=== PATIENT | female | born 1935 | race Caucasian/White ===

== ENCOUNTER 2017-12-21 06:31 | Day surgery (SDC) | payer MEDICARE, SELFPAY ==
[2016-09-25 14:43] VITALS: BP 128/70
[2017-12-03 16:26] VITALS: BP 102/62; BMI 16.4
[2017-12-21 07:42] VITALS: BP 130/88; PULSE 75; RESP 16; TEMP 36.9; O2SAT 96; BMI 14.3
[2017-12-21] MEDS: Tetracaine 0.5% Ophthalmic Bottle 1 DRP (08:18)
--- NOTE | 2017-12-21 08:47 | PCM.DCCATA ---
Discharge Diet: No Restrictions Discharge Activity: - - Take it easy the rest of the day of surgery. Be careful not to trip or fall. Avoid bumping the operated eye and do not rub the eye. You may stay alone, but need to be able to call and/or come in if necessary. Try to sleep on the unoperated side or on your back tonight. Call your doctor if you observe: - - new or increased pain, a worsening of vision, or if you have any questions. Also call the office if you are experiencing a severe headache on the operative side, nausea or vomiting. Allergies/Adverse Reactions: Allergies erythromycin base Allergy (Verified 12/17/17 10:06) Hives Latex, Natural Rubber Allergy (Verified 12/17/17 10:06) Other Penicillins Allergy (Verified 12/17/17 10:06) Shortness of breath clarithromycin Adverse Reaction (Verified 12/17/17 10:06) Other severe confusion Medications to take at Discharge tiotropium bromide 18 mcg capsule with inhalation device 1 cap INHALATION QDAY 12/03/17 Aspirin [Adult Low Dose Aspirin EC] 81 mg PO DAILY 12/14/17 Levothyroxine [Synthroid] 75 mcg PO DAILY 12/14/17 Mirtazapine [Remeron] 15 mg PO QHS 12/14/17 Acetaminophen [Tylenol Extra Strength] 250 mg PO Q6H PRN PRN 12/17/17 Benzonatate [Tessalon Perle] 100 mg PO Q4H PRN PRN 12/17/17 Primary Care Physician: Cory Mseser MD [Primary Care Provider] - -Take a pain reliever such as Tylenol, Aspirin or Ibuprofen if needed for eye aching or pain. If this is not enough relief for you pain, call your doctor (or the doctor architectural sales consultant), even at night. -You are scheduled for a follow-up appointment at [facility] the day after surgery. You should have someone drive you. -Transient pain and irritation are due to the incision that was made at the time of surgery and do not indicate any trouble. Our office numbers are or toll-free . If there is no answer, or if it is after our normal business hours, call your surgeon. Our home phone numbers are: Dr. Malagon Dr. Fernández Dr. Farmer Dr. Abbasi If you are still unable to reach your doctor, call the answering service and [facility] , and the addressing machine operator can contact the on-call doctor through a long-range beeper system. INSTRUCTIONS FOLLOWING TOPICAL ANESTHETIC CATARACT SURGERY Protect operated eye with glasses or metal shield at all times. Instill one drop of Cipro (or other antibiotic drop), one drop of Prednisolone and one drop of Flurbiprofen in the operated eye four times a day (breakfast, lunch, dinner and bedtime) until the doctor tells you to quit or decrease them. Wait 3-5 minutes between each drop. Your first drop for today was given after surgery. INSTRUCTIONS FOLLOWING RETROBULBAR CATARACT SURGERY Keep the eye patch and metal shield on until you see your surgeon the day after surgery - these will be removed in the office that day. Do not drive while the patch is on your eye. You will be instructed about the use of drops for the operated eye at that visit.
[2017-12-21 08:51] VITALS: BP 130/88; BP 147/97; PULSE 73; RESP 18; TEMP 36; O2SAT 98
[2017-12-21 08:55] VITALS: BP 130/88; BP 140/83; PULSE 71; RESP 18; O2SAT 98
[2017-12-21 09:00] VITALS: BP 130/88; BP 146/96; PULSE 68; RESP 18; O2SAT 98
[2017-12-21 09:06] VITALS: BP 130/88; BP 144/84; PULSE 68; RESP 18; TEMP 36.8; O2SAT 98
[2017-12-21 09:44] VITALS: BP 130/88
== END 2017-12-21 10:02 | disposition home or self-care (01) ==
LOC: SDC 06:34 → AC 06:34
PROVIDERS: Family Provider Family Medicine; PCP Family Medicine; Visit Provider Ophthalmology
PROC: (CPT 66984; principal; 2017-12-21 08:10)
DX: H25.13 Age-related nuclear cataract, bilateral (principal); H35.363 Drusen (degenerative) of macula, bilateral; H43.813 Vitreous degeneration, bilateral; D31.31 Benign neoplasm of right choroid; J44.9 Chronic obstructive pulmonary disease, unspecified; E07.9 Disorder of thyroid, unspecified; G25.81 Restless legs syndrome; Z79.82 Long term (current) use of aspirin; Z79.899 Other long term (current) drug therapy; F17.200 Nicotine dependence, unspecified, uncomplicated; Z78.0 Asymptomatic menopausal state; Z86.718 Personal history of other venous thrombosis and embolism; Z86.73 Personal history of transient ischemic attack (TIA), and cerebral infarction without residual deficits; Z90.710 Acquired absence of both cervix and uterus
CPT/HCPCS: 66984; J7120

== ENCOUNTER 2019-09-01 13:28 | Emergency (ER) | payer MEDICARE, SELFPAY ==
[2019-09-01 13:05] VITALS: BMI 14.3
[2019-09-01 13:30] VITALS: BP 116/77; PULSE 87; RESP 16; TEMP 37; O2SAT 97; BMI 13.6
[2019-09-01] MEDS: 0.9% Normal Saline 1,000 ML 1000 ML IV (14:55)
[2019-09-01 14:59] LABS: Mucous, Urine 0 SEEN /hpf (<or=2+)
[2019-09-01 15:04] LABS: Absolute Lymphocyte Count 1.66 X10^3/uL (0.83-4.51); Absolute Neutrophil Count 7.2 X10^3/uL (2.0-7.7); Basophil# 0.04 X10^3/uL; Basophil% 0.4 % (0-1); Hematocrit 45.2 % (37-47); Hemoglobin 14.7 g/dL (12.0-15.0); Lymphocyte # 1.66 X10^3/ul (4.0); Lymphocyte % 16.8 % (19-41); Mean Corp Hgb Conc 32.5 g/dL (32-36); Mean Corpuscular Hgb 31.2 pg (27.0-32.0); Mean Platelet Vol. 9.6 fl (6.2-12.0); Monocyte# 0.83 X10^3/uL; Monocyte% 8.4 % (0-10); NRBC Flagged by Analyzer 0 % (0-5); Neutrophil % 73.1 % (47-70); Platelet Count 247 K/mm3 (150-450); RBC Distribution Width CV 13.2 % (11.6-14.6); RBC Distribution Width SD 47.3 fl (35.1-43.9); Red Blood Count 4.71 M/mm3 (4.2-5.4); White Blood Count 9.9 K/mm3 (4.4-11.0)
[2019-09-01 15:06] LABS: Color, Urine Yellow (Yellow); Glucose, Dipstick Normal (Normal); Ketone-Dipstick Negative (Negative); Leukocyte Esterase-Dipstick 500 /ul (Negative); Nitrite-Dipstick Negative (Negative); Occult Blood-Urine 50 /ul (Negative); Protein-Dipstick 30 mg/dl (Negative); Specific Gravity, Urine 1.015 (1.002-1.030); Urine Bilirubin Dipstick Negative (Negative); Urine Clarity Sl. Cloudy (Clear); Urine Urobilinogen Normal (Normal); Urine pH 6.5 (5.0 - 8.0)
[2019-09-01 15:07] LABS: Red Blood Cells-Urine 0-5 SEEN /hpf (0-5)
[2019-09-01 15:08] LABS: Bacteria 2+ /hpf (None Seen); Squamous Epithelial Cells - UA 0-5 SEEN /hpf (5-10); White Blood Cells 50-100 SEEN /hpf (0-5)
[2019-09-01 15:36] LABS: Anion Gap 5 (5-15); BUN 14 mg/dL (7-18); BUN/Creat Ratio 20.7 RATIO (10-20); Calcium,Total 9.1 mg/dL (8.5-10.1); Chloride 97 mmol/L (98-107); Creatinine, Serum 0.68 mg/dL (0.55-1.02); EST Glomerular Filtration Rate 88 mL/min (>60); Est Glom Filt Rate - Afr Amer 106 mL/min (>60); Estimated Creatinine Clearance 20.62 ml/min; Glucose 83 mg/dL (74-106); Potassium 4.5 mmol/L (3.5-5.1); Sodium Level 132 mmol/L (136-145)
--- NOTE | 2019-09-01 15:39 | ED.DCSUM_ITS ---
- ER Visit Summary Date of Service: 09/01/19 Chief Complaint: Sent by the urgent care diagnosed with a urinary tract infection and felt to be dehydrated. History of Present Illness: The patient is a 84 F history of hypothyroidism and COPD. Patient states she has not felt well for 2 to 3 weeks. She is had urinary frequency. She denies fever nor vomiting or diarrhea. No vaginal bleeding. No back pain. She was seen in the urgent care today and sent to the emergency department. Physical Examination: Older female no acute distress. Vital signs are stable afebrile. HEENT exam unremarkable. Moist week's membranes. Neck nontender no lymphadenopathy. Lungs clear to auscultation bilaterally. Heart regular rhythm no murmur. Abdomen is soft and nontender. Normal bowel sounds no peritoneal signs. Patient moving all 4 extremities. Neurovascular intact. No edema. Neurologically she is awake and alert with no focal motor deficits. Test Results: CBC shows white count of 9. Hemoglobin 14. Electrolytes show sodium 132. Gap of 5 normal BUN of 14 creatinine 0.6 not consistent with dehydration. UA is consistent with urinary tract infection with 50-100 white cells 2+ bacteria and a culture was sent. Emergency Department Course and Treatment: The patient looks well. On repeat exam no change. She will be started on Keflex 500 4 times daily for 10 days and follow-up with her primary care physician. Return if feeling worse. Treatment Plan: Keflex 4 times daily for 10 days. Follow-up with primary care physician. Return if worse. Disposition: Discharge Impression: Acute UTI This note was generated with Surikate dictation software. It may contain incorrect words, spelling, and punctuation that were not noted in review of the chart prior to signing ED Disposition - Plan for ED Patient: Referrals: Cory Messer DO [Primary Care Provider] -
[2019-09-01] MEDS: Cephalexin 250 MG Capsule 500 MG PO (15:56)
[2019-09-01 16:05] VITALS: BP 164/90; PULSE 80; RESP 16; O2SAT 99
--- NOTE | 2019-09-01 16:34 | ED.DEP ---
ED Disposition - Plan for ED Patient: Disposition: Home or Assisted Living Instructions: Bladder Infection, Female (Adult) Prescriptions: Cephalexin [Keflex] 500 mg PO Q6 #40 cap Prescription Printed Referrals: Cory Messer DO [Primary Care Provider] - 3-5 Days if not improving Additional Instructions: Keflex 1 pill 4 times a day till gone. Plenty of fluids and rest. Follow-up with your doctor if not improving or return if worse.
== END 2019-09-01 16:40 | disposition home or self-care (01) ==
PROVIDERS: Emergency Provider Emergency Medicine; Family Provider Family Medicine; PCP Family Medicine
DX: N39.0 Urinary tract infection, site not specified (principal); R39.15 Urgency of urination; J44.9 Chronic obstructive pulmonary disease, unspecified; E03.9 Hypothyroidism, unspecified; Z72.0 Tobacco use; Z79.899 Other long term (current) drug therapy
CPT/HCPCS: 80048; 81001; 85025; 87077; 87086; 87088; 87186; 96360; 99284; J7030

== ENCOUNTER → 2019-09-01 14:50 | Outpatient (CLI) | payer MEDICARE, SELFPAY ==
[2019-09-01 13:30] VITALS: BMI 13.6
[2019-09-01 15:22] LABS: Bacteria 0 SEEN /hpf (None Seen); Mucous, Urine 0 SEEN /hpf (<or=2+); Red Blood Cells-Urine 0 SEEN /hpf (0-5); Squamous Epithelial Cells - UA 0 SEEN /hpf (5-10)
[2019-09-01 15:33] LABS: Color, Urine Yellow (Yellow); Glucose, Dipstick Normal (Normal); Ketone-Dipstick Negative (Negative); Leukocyte Esterase-Dipstick 500 /ul (Negative); Nitrite-Dipstick Negative (Negative); Occult Blood-Urine 150 /ul (Negative); Protein-Dipstick 30 mg/dl (Negative); Specific Gravity, Urine 1.025 (1.002-1.030); Urine Bilirubin Dipstick Negative (Negative); Urine Clarity Cloudy (Clear); Urine Urobilinogen Normal (Normal)
[2019-09-01 15:40] LABS: White Blood Cells >100 SEEN /hpf (0-5)
== END ==
PROVIDERS: Family Provider Family Medicine; PCP Family Medicine; Referring Provider Physician Assistant Surgical; Visit Provider Physician Assistant Surgical
DX: R39.15 Urgency of urination (principal)
CPT/HCPCS: 81001; 87077; 87086; 87088; 87186

== ENCOUNTER → 2019-10-06 13:52 | Outpatient (CLI) | payer MEDICARE, SELFPAY ==
[2019-10-06 13:18] VITALS: BMI 13.6
[2019-10-06 15:13] LABS: Thyroid Stim Hormone (TSH) 1.88 uIU/mL (0.358-3.74)
== END ==
PROVIDERS: Family Provider Family Medicine; PCP Family Medicine; Referring Provider Family Medicine; Visit Provider Family Medicine
DX: E03.9 Hypothyroidism, unspecified (principal)
CPT/HCPCS: 36415; 84443

== ENCOUNTER 2020-05-29 12:05 | Emergency (ER) | payer MEDICARE, SELFPAY ==
[2020-05-29 11:41] VITALS: BMI 13.6
[2020-05-29 12:06] VITALS: BP 126/69; PULSE 96; RESP 22; TEMP 36.6; O2SAT 94; BMI 15.0
--- NOTE | 2020-05-29 12:24 | EKG12_ITS ---
Test Reason : SOB Blood Pressure : / mmHG Vent. Rate : 087 BPM Atrial Rate : 087 BPM P-R Int : 124 ms QRS Dur : 070 ms QT Int : 368 ms P-R-T Axes : 074 045 070 degrees QTc Int : 442 ms Sinus rhythm with sinus arrhythmia with occasional Premature ventricular complexes Possible Left atrial enlargement Septal infarct , age undetermined Abnormal ECG Confirmed by SUSU HOWARD, SAMMY ([id number]), dictionary editor CHRISTIANO NOBLE ([id number]) on 06/01/2020 9:25:11 AM Referred By: ABAD Confirmed By:SAMMY CRISTOBAL MD
--- NOTE | 2020-05-29 12:24 | RAD_ITS ---
STUDY: X-RAY CHEST REASON FOR EXAM: Female, 84 years old. cough, SOB, BHAKTA -- x 3-4 days -- h/o COPD TECHNIQUE: Frontal view of the chest COMPARISON: September 23, 2016 FINDINGS: Lungs are severely hyperinflated. Is an elongated opacity arising from the right hilum, possibly in the fissure. There is no pneumothorax, pulmonary edema or pleural effusions. Cardiac size is enlarged. There is chronic scarring in the right apex. Skeletal structures are intact and osteoporotic. The patient is cachectic. RAD/Chest 1 View (Portable) IMPRESSION: 1. Right hilar opacity, unclear etiology. Differential possibilities are segmental collapse versus mass lesion. Refer to CT chest with contrast for definitive assessment. 2. Severe emphysema. 3. Moderate cardiomegaly. Electronically Signed: Rabia Fuller, at 14:10 EDT Tel , Service support ,
--- NOTE | 2020-05-29 12:27 | ED.VISSUMM ---
- ER Visit Summary Date of Service: 05/29/20 Chief Complaint: shortness of breath] History of Present Illness: The patient is a 84 F [presents to the emergency department with complaint of cough and shortness of breath. Patient's had symptoms for about a week. She denies fever. She complains of headache. She denies sore throat but it just is bothersome at times she states. She denies any ear pain. She denies body aches. Cough is sometimes productive of yellow sputum. She does have history of COPD and normally wears 3 L of home O2. She denies recent travel or surgery. She denies any exposures to any known cases of COVID-19. Patient was seen in urgent care and was referred to the emergency department today.] Physical Examination: [HEENT-PERRLA, EOMI. Cranial nerves II through XII grossly intact. TMs clear. Mucous membranes moist. No adenopathy. Patient is frail and cachectic. Cardiovascular-regular rate and rhythm without murmur or ectopy Lungs-diminished breath sounds bilaterally with some faint expiratory wheezes noted. Minimal tachypnea. No accessory muscle use or retractions. Abdomen-normoactive bowel sounds, soft, nontender, no rebound or rigidity, no peritoneal signs. Extremities-intact ?4, normal range of motion, normal pulses, atraumatic] Test Results: [EKG obtained arrival shows sinus rhythm with a ventricular rate of 87 bpm with some left atrial enlargement and old septal infarct noted. CBC with differential shows slight elevated white count 13.0, hemoglobin 13, hematocrit 39, placed 431. Chemistry showed a sodium of 127, potassium 4.8, chloride 93, CO2 30, BUN 11, creatinine 144, glucose was 108. Troponin was less than 0.15. COVID-19 test was negative. Chest x-ray showed COPD and a right hilar density which could be collapsed lung segment versus mass and recommended obtaining a CT scan to further evaluate.] Emergency Department Course and Treatment: [Patient had an IV line established on arrival. She was placed on a manager cardiac cath. Patient received albuterol inhaler. Patient was given Solu-Medrol 60 mg IV. Patient received doxycycline 100 mg p.o.] Treatment Plan: [Patient will be treated with doxycycline as well as prednisone. Patient did not want to be admitted. She feels well enough to go home and she felt improved after treatment. It was noted during her stay that she intermittently had tachycardia on monitor therefore a repeat EKG was obtained which was sinus with a ventricular rate of 86 bpm which is unchanged from prior] Disposition: [Discharged home in stable condition] Impression: [COPD exacerbation Dyspnea] This note was generated with Memoiration software. It may contain incorrect words, spelling, and punctuation that were not noted in review of the chart prior to signing ED Disposition - Plan for ED Patient: Instructions: ED COPD Flare Prescriptions: Doxycycline 100 mg PO BID #20 cap Transmission Status: Received by [id number] Prednisone 20 mg PO BID #14 tab Transmission Status: Received by [id number] Referrals: Cory Messer DO [Primary Care Provider] - 3-5 Days
[2020-05-29 12:32] VITALS: BP 157/94; PULSE 90; RESP 23; O2SAT 95; O2SAT 96
[2020-05-29] MEDS: MethylPREDNISolone 125 MG/2 ML Vial 60 MG IV (13:05)
[2020-05-29 13:30] LABS: Absolute Lymphocyte Count 0.92 X10^3/uL (0.83-4.51); Absolute Neutrophil Count 10.3 X10^3/uL (2.0-7.7); Basophil# 0.04 X10^3/uL; Basophil% 0.3 % (0-1); Eosinophil# 0.05 X10^3/uL; Eosinophils% 0.4 % (0-5); Hematocrit 39.2 % (37-47); Hemoglobin 13.2 g/dL (12.0-15.0); Lymphocyte # 0.92 X10^3/ul (4.0); Lymphocyte % 7.1 % (19-41); Mean Corp Hgb Conc 33.7 g/dL (32-36); Mean Corpuscular Hgb 32.3 pg (27.0-32.0); Mean Corpuscular Volume 95.8 fL (81-99); Monocyte# 1.58 X10^3/uL; Monocyte% 12.2 % (0-10); NRBC Flagged by Analyzer 0 % (0-5); Neutrophil # 10.33 X10^3/uL (2.7-7.7); Neutrophil % 79.7 % (47-70); POSITIVE DIFFERENTIAL YES; Platelet Count 431 K/mm3 (150-450); RBC Distribution Width CV 12.6 % (11.6-14.6); RBC Distribution Width SD 44.1 fl (35.1-43.9); Red Blood Count 4.09 M/mm3 (4.2-5.4)
[2020-05-29 13:32] LABS: Differential Indicated SCAN CRITERIA MET
[2020-05-29 13:43] LABS: Anion Gap 4 (5-15); BUN 11 mg/dL (7-18); Calcium,Total 8.8 mg/dL (8.5-10.1); Chloride 93 mmol/L (98-107); Creatinine, Serum 0.44 mg/dL (0.55-1.02); EST Glomerular Filtration Rate 144 mL/min (>60); Est Glom Filt Rate - Afr Amer 174 mL/min (>60); Estimated Creatinine Clearance 21.95 ml/min; Glucose 108 mg/dL (74-106); Lactic Acid 1.2 mmol/L (0.4-1.9); Potassium 4.8 mmol/L (3.5-5.1); Sodium Level 127 mmol/L (136-145)
[2020-05-29 13:55] LABS: Probe Check PASS; Specimen Processing Control PASS
[2020-05-29 13:56] VITALS: BP 120/96; PULSE 84; RESP 17; O2SAT 97
[2020-05-29 13:57] VITALS: BP 120/96; PULSE 84; RESP 17; TEMP 36.6; O2SAT 97
[2020-05-29 13:57] LABS: Differential Comment SCANNED
[2020-05-29 14:03] VITALS: PULSE 126; RESP 20
--- NOTE | 2020-05-29 14:21 | ED.DEP ---
ED Disposition - Plan for ED Patient: Instructions: ED COPD Flare Prescriptions: Doxycycline 100 mg PO BID #20 cap Transmission Status: Pending to [facility] Prednisone 20 mg PO BID #14 tab Transmission Status: Pending to [facility] Referrals: Cory Messer DO [Primary Care Provider] - 3-5 Days
[2020-05-29] MEDS: Doxycycline 100 MG CAPSULE PO (14:24)
[2020-05-29 14:27] VITALS: BP 132/84; PULSE 93; RESP 20
--- NOTE | 2020-05-29 15:05 | EKG12_ITS ---
Test Reason : REPEAT EKG Blood Pressure : / mmHG Vent. Rate : 086 BPM Atrial Rate : 086 BPM P-R Int : 124 ms QRS Dur : 080 ms QT Int : 374 ms P-R-T Axes : 086 052 072 degrees QTc Int : 447 ms Sinus rhythm with occasional Premature ventricular complexes Possible Left atrial enlargement Septal infarct , age undetermined Abnormal ECG Confirmed by SUSU HOWARD, SAMMY ([id number]), movie editor CHRISTIANO NOBLE ([id number]) on 06/01/2020 9:25:30 AM Referred By: ABAD Confirmed By:SAMMY CRISTOBAL MD
[2020-05-31 12:22] LABS: Pathologist Review Reviewed
== END 2020-05-29 14:39 | disposition home or self-care (01) ==
LOC: ED 13:08
PROVIDERS: Emergency Provider Emergency Medicine; PCP Family Medicine
DX: J44.1 Chronic obstructive pulmonary disease with (acute) exacerbation (principal); D72.829 Elevated white blood cell count, unspecified; R00.0 Tachycardia, unspecified; R51 Headache; E03.9 Hypothyroidism, unspecified; R64 Cachexia; Z72.0 Tobacco use; Z99.81 Dependence on supplemental oxygen; Z79.899 Other long term (current) drug therapy; I25.2 Old myocardial infarction; Z86.73 Personal history of transient ischemic attack (TIA), and cerebral infarction without residual deficits
CPT/HCPCS: 36415; 71045; 80048; 83605; 84484; 85025; 87040; 87635; 93005; 94640; 96374; 99285; G2023; A4216; U0003

== ENCOUNTER → 2020-06-10 15:35 | Outpatient (CLI) | payer MEDICARE, SELFPAY ==
[2020-06-03 11:14] VITALS: BMI 15.0
--- NOTE | 2020-06-10 15:36 | RAD_ITS ---
STUDY: X-RAY CHEST REASON FOR EXAM: Female, 84 years old. right hilar opacity seen on chest xray done 05-29-20, follow up TECHNIQUE: Frontal and lateral views COMPARISON: 05/29/2020, 02/21/2016 CT chest FINDINGS: The lungs are hyperaerated. There is persistent right perihilar opacity. This may correspond to the area of focal consolidation of the right middle lobe seen on prior CT in 2015. Normal size heart. Normal mediastinum and frederick. Normal visualized pulmonary arteries. Calcified visualized aortic arch and descending thoracic aorta. Stable scoliosis of the thoracic spine. Normal visualized ribs, clavicles, and shoulders. There is no demonstrated abnormality of the visualized soft tissue structures of the upper abdomen. RAD/Chest PA and Lateral IMPRESSION: The lungs are hyperaerated. There is persistent right perihilar opacity. Electronically Signed: Desmond Mcnair DO at 8:30 EDT Tel [phone], Service support ,
== END ==
PROVIDERS: PCP Family Medicine; Referring Provider Family Medicine; Visit Provider Family Medicine
DX: J43.9 Emphysema, unspecified (principal)
CPT/HCPCS: 71046

== ENCOUNTER → 2020-06-24 14:42 | Outpatient (CLI) | payer MEDICARE, SELFPAY ==
[2020-06-03 11:14] VITALS: BMI 15.0
--- NOTE | 2020-06-24 14:43 | CT_ITS ---
STUDY: CT CHEST WITH CONTRAST REASON FOR EXAM: Female, 84 years old. ABN CXR, ABNORMALITY SEEN IN RT LUNG RADIATION DOSAGE (If Supplied By Facility): CTDIvol = ( 8.66 ) mGy, DLP = ( 146.61 ) mGycm TECHNIQUE: Transaxial imaging was performed following intravenous administration of IV 75mL Isovue-300. Individualized dose optimization techniques were used for this CT. COMPARISON: Chest x-ray 06/10/2020, CT of the chest 02/21/2016. FINDINGS: There is hyperinflation of the lungs consistent with severe chronic obstructive lung disease (COPD). There is diffuse interstitial prominence consistent with fibrosis. Stable chronic atelectasis in the right middle lobe resulting in the previously described densities. No focal infiltrates. No effusions. There is no demonstrated pleural abnormality. There is moderate cardiac enlargement. Normal mediastinum. Normal hilar regions. There is prominence of the pulmonary hilar arteries without peripheral pulmonary vascular congestion, suggesting pulmonary hypertension. There is atherosclerotic calcification of the aortic arch with tortuosity and elongation of the aortic arch and descending thoracic aorta. There are multi-level degenerative changes of the thoracic spine. There is no demonstrated abnormality of the visualized upper abdomen. There is severe cachexia. CT/Chest WITH Contrast IMPRESSION: Severe COPD no definite acute chest disease. Chronic atelectasis of the right middle lobe accounting for the abnormality on chest x-ray and stable from 02/21/2016. This does not need further evaluation or follow-up. Electronically Signed: Froy Geiger MD at 22:32 EDT , Service support ,
== END ==
PROVIDERS: PCP Family Medicine; Referring Provider Family Medicine; Visit Provider Family Medicine
DX: J98.4 Other disorders of lung (principal)
CPT/HCPCS: 71260; Q9967; A4216